=== PATIENT | female | born 1955 | race Caucasian/White ===

== ENCOUNTER 2020-02-22 11:12 | Emergency (ER) | payer OTHER ==
[~2020-02-22] VITALS: Ht 154.9 cm; Wt 86.2 kg
[2020-02-22] MEDS ORDERED: VITAMINS (11:27)
[2020-02-22] MEDS ORDERED: OMEPRAZOLE10 MG PO (11:27)
[2020-02-22] MEDS ORDERED: TRANSDERM-SCOP1 EACH TRANSDERM (12:08)
[2020-02-22] MEDS ORDERED: ZOFRAN ODT4 MG PO (12:08)
[2020-02-22 12:25] VITALS: BP 145/75
== END 2020-02-22 12:25 | disposition home or self-care (01) ==
LOC: M.ERS 11:12
DX: S06.0X1A Concussion with loss of consciousness of 30 minutes or less, initial encounter (principal); S00.03XA Contusion of scalp, initial encounter; W10.8XXA Fall (on) (from) other stairs and steps, initial encounter; Y93.89 Activity, other specified; Y92.89 Other specified places as the place of occurrence of the external cause; Y99.8 Other external cause status